=== PATIENT | male | born 1945 | race Hispanic/Latino ===

== ENCOUNTER 2021-07-03 07:30 | Day surgery (SDC) | payer OTHER ==
[2021-07-03] MEDS ORDERED: NA CHLORIDE 0.9% 500 ML ONE (07:55)
[2021-07-03] MEDS ORDERED: HEPA 1000U/500MLS 1,000 UNIT/500 ML BAG IV ONE (08:03)
[2021-07-03] MEDS ORDERED: FENTANYL CITR 100 MCG/2 ML ONE (08:04)
[2021-07-03] MEDS ORDERED: MIDAZOLAM HCL 2 MG/2 ML INJ ONE (08:04)
[2021-07-03] MEDS ORDERED: NA CHLORIDE 0.9% 0 ML ONE (08:05)
[2021-07-03] MEDS ORDERED: ATROPINE SULF 1 MG/10 ML SYR IV ONE (08:05)
[2021-07-03] MEDS ORDERED: NITROGLYCERIN 100 MCG/ML SYR (for cath lab use only) IV ONE (08:06)
[2021-07-03] MEDS ORDERED: NITROGLYCERIN/D5W 25 MG/250 ML BTL IV ONE (08:06)
[2021-07-03 08:37] VITALS: TEMP 97.6
[2021-07-03 16:29] VITALS: O2SAT 97
[2021-07-03 16:32] VITALS: BP 112/70
--- NOTE | 2021-07-04 02:49 | OP ---
Surgeon: Dariusz Rolon MD Director Of Category Management: Mr. Diaz Procedures: Left heart catheterization, selective coronary arteriogram, mammary injection, and vein graft injection. Indication: CAD, CABG, recent admission to the hospital with unstable angina, MS ruled out. Procedure In Detail: Mr. Sanchez was brought to the scientific laboratory supervisor today, prepped and draped in routine steri le fashion. Given Versed and fentanyl for sedation. A 6-[place]ian sheath was then introduced in the [facility] common femoral artery successfully. We held pressure for hemostasis and he was at bedrest for 6 hours after the procedure. We placed a 6-[place]ian Giancarlo catheter JL4 in the left main. He was found to have a completely occlud ed LAD before the first diagonal. The circumflex had about a 30% stenosis within an old stent in the proximal area, otherwise it was patent. The left main was short, but patent. A JR4 catheter was us ed to cannulate the qaw[place]angin RCA, which was completely occluded. The graft to the diagonal was cannula aly and had a 40% ostial lesion. The RCA graft was patent with an in-stent restenosis about 30% to 4 0% at the ostium. The MANCINI was patent to the LAD. The patient had no complication. Blood loss was 5 mL. He tolerated the procedure well. Total conscious sedation was 45 minutes. Final Assessment: Severe coronary artery disease. Plan: Plan is for medical therapy. Beta-blockers were increased. The patient will remain at bedres t for 6 hours after the procedure, and then he will go home after that. YUMIKO/ADELINA Voice ID: [id number] Report ID: [id number]
== END 2021-07-03 15:40 | disposition home or self-care (01) ==
LOC: CCL 07:30
DX: I25.110 Atherosclerotic heart disease of native coronary artery with unstable angina pectoris (principal); I25.700 Atherosclerosis of coronary artery bypass graft(s), unspecified, with unstable angina pectoris; I25.82 Chronic total occlusion of coronary artery; T82.855A Stenosis of coronary artery stent, initial encounter; I10 Essential (primary) hypertension; E78.5 Hyperlipidemia, unspecified; K21.9 Gastro-esophageal reflux disease without esophagitis; F41.9 Anxiety disorder, unspecified; E80.4 Gilbert syndrome; N40.0 Benign prostatic hyperplasia without lower urinary tract symptoms; Z95.5 Presence of coronary angioplasty implant and graft; Z20.822 Contact with and (suspected) exposure to COVID-19; Z80.0 Family history of malignant neoplasm of digestive organs; Z82.49 Family history of ischemic heart disease and other diseases of the circulatory system; Z83.3 Family history of diabetes mellitus
CPT/HCPCS: 93455; C1893; J2250; J3010; J7040; J1644; J0583